=== PATIENT | female | born 2000 | race Two or more races ===

== ENCOUNTER 2022-01-05 11:12 | Emergency (ER) | payer SELFPAY ==
[~2022-01-05] VITALS: Ht 154.9 cm; Wt 57.0 kg
[2022-01-05 13:01] VITALS: BP 120/81
== END 2022-01-05 13:01 | disposition home or self-care (01) ==
LOC: ER 11:57
DX: S93.491A Sprain of other ligament of right ankle, initial encounter (principal); W01.0XXA Fall on same level from slipping, tripping and stumbling without subsequent striking against object, initial encounter; Y93.89 Activity, other specified; Y92.89 Other specified places as the place of occurrence of the external cause; Y99.8 Other external cause status
CPT/HCPCS: 29515; 99283